=== PATIENT | male | born 1980 | race Asian ===

== ENCOUNTER 2018-07-07 06:57 | Emergency (ER) | payer SELFPAY ==
[~2018-07-07] VITALS: Wt 80.0 kg
[2018-07-07] MEDS ORDERED: IODIXANOL LOCM 100 ML BTL ONE (07:29)
[2018-07-07] MEDS ORDERED: SOD CHLORIDE 0.9% 100 ML ONE (07:29)
--- NOTE | 2018-07-07 07:53 | ERD ---
ER Documentation Chief Complaint Chief Complaint ams while at work no trauma or headache. confused on arrival. HPI During the patient's encounter translation services were utilized Language: Gita Source: In person 38-year-old male with unknown past medical history who presents to the emergency room with altered mental status and clumsiness. 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 Patrons called 911. The patient arrives and is alert to person and date of but otherwise confused. The patient is clumsiness. He states that he feels fine. He denies any drugs or alcohol. He denies any pain, no headache chest pain or shortness of breath. Remainder of HPI is somewhat limited. Last known well time is not available. The patient works the overnight shift. ROS All systems reviewed and are negative except as per history of present illness although somewhat limited Medications Home Meds No Active Prescriptions or Reported Meds Allergies Allergies: Coded Allergies: No Known Allergy (Unverified , 07/07/18) PMhx/Soc Hx Miscellaneous Medical Probl: Yes (jaundice ) Hx Alcohol Use: No Hx Substance Use: No Hx Tobacco Use: No Smoking Status: Never smoker FmHx Family History: No diabetes Physical Exam Vitals Vital Signs Date Temp Pulse Resp B/P (MAP) Pulse Ox O2 O2 Flow FiO2 Time Delivery Rate 07/07/18 98.9 93 18 134/90 100 Nasal 2.0 13:23 (105) Cannula 07/07/18 88 16 122/88 100 Nasal 2.0 11:17 (99) Cannula 07/07/18 85 17 129/90 99 Room Air 08:23 (103) 07/07/18 95 20 142/89 96 Room Air 07:27 (106) 07/07/18 97.9 102 18 148/78 98 07:05 (101) Physical Exam General: Appears older than stated age, somewhat confused Head: Normocephalic, atraumatic. Eyes: Pupils equally reactive, EOM intact ENT: Moist mucous membranes Neck: Supple, no lymphadenopathy Respiratory: Lungs clear bilaterally, no distress Cardiovascular: RRR, no murmurs, rubs, or gallops Abdominal: Soft, non-tender, non-distended, no peritoneal signs : Deferred MSK: No edema, no unilateral swelling, 5/5 strength Neurologic: Alert and oriented to person and date of otherwise confused, moving all extremities, normal speech, no focal weakness, no cerebellar signs however some clumsiness when transferring taper from hand to hand bilaterally. No pronator drift. Skin: No rash Psych: Normal mood Result Diagram: 07/07/18 0709 07/07/18 1151 Results 24 hrs Laboratory Tests Test 07/07/18 06:18 07/07/18 07:07 07/07/18 07:09 07/07/18 11:51 Urine Color YELLOW Urine Clarity CLEAR Urine pH 7.0 Urine Specific 1.012 [place] Urine Ketones NEGATIVE mg/dL Urine Nitrite NEGATIVE mg/dL Urine Bilirubin NEGATIVE mg/dL Urine Urobilinogen NEGATIVE mg/dL Urine Leukocyte NEGATIVE Art/ul Esterase Urine Microscopic 1 /HPF RBC Urine Microscopic 1 /HPF WBC Urine Hemoglobin 1+ mg/dL Urine Glucose NEGATIVE mg/dL Urine Total NEGATIVE mg/dl Protein Urine Opiates Negative Screen Urine Barbiturates Negative Urine Amphetamines Negative Screen Urine Negative Benzodiazepines Screen Urine Cocaine Negative Screen Urine Cannabinoids Negative Ammonia 40 umol/l White Blood Count 4.6 10^3/ul Red Blood Count 3.92 10^6/ul Hemoglobin 10.5 g/dl Hematocrit 32.6 % Mean Corpuscular 83.2 fl Volume Mean Corpuscular 26.8 pg Hemoglobin Mean Corpuscular 32.2 g/dl Hemoglobin Concent Red Cell 19.7 % Distribution Width Platelet Count 67 10^3/UL Mean Platelet 10.3 fl Volume Immature 0.400 % Granulocytes % Neutrophils % 48.6 % Lymphocytes % 32.4 % Monocytes % 12.3 % Eosinophils % 5.0 % Basophils % 1.3 % Nucleated Red 0.0 /100WBC Blood Cells % Immature 0.020 10^3/ul Granulocytes # Neutrophils # 2.3 10^3/ul Lymphocytes # 1.5 10^3/ul Monocytes # 0.6 10^3/ul Eosinophils # 0.2 10^3/ul Basophils # 0.1 10^3/ul Nucleated Red 0.0 10^3/ul Blood Cells # Platelet Estimate DECREASED Prothrombin Time 17.7 Sec Prothrombin Time 1.4 Ratio INR International 1.45 Normalized Ratio Activated 37.[address] Time Sodium Level 144 mmol/L 146 mmol/L Potassium Level 3.4 mmol/L 3.8 mmol/L Chloride Level 108 mmol/L 113 mmol/L Carbon Dioxide 27 mmol/L 26 mmol/L Level Anion Gap 9 7 Blood Urea 4 mg/dl 3 mg/dl Nitrogen Creatinine 0.85 mg/dl 0.76 mg/dl Est Glomerular > 60 mL/min > 60 mL/min Filtrat Rate mL/min Glucose Level 159 mg/dl 97 mg/dl Hemoglobin A1c 5.2 % Calcium Level 8.7 mg/dl 8.0 mg/dl Total Bilirubin 1.7 mg/dl Direct Bilirubin 0.00 mg/dl Indirect Bilirubin 1.7 mg/dl Aspartate Amino 93 IU/L Transf (AST/SGOT) Alanine 52 IU/L Aminotransferase ( ALT/SGPT) Alkaline 128 IU/L Phosphatase Creatine Kinase 1342 IU/L 1154 IU/L Creatine Kinase 0.4 Index Creatinine Kinase 5.58 ng/ml MB (Mass) Troponin I 0.015 ng/ml Total Protein 7.8 g/dl Albumin 3.7 g/dl Globulin 4.10 g/dl Albumin/Globulin 0.90 Ratio Triglycerides 77 mg/dl Level Cholesterol Level 149 mg/dl LDL Cholesterol, 64 mg/dl Calculated HDL Cholesterol 70 mg/dl Cholesterol/HDL 2.1 RATIO Ratio Ethyl Alcohol 403.0 mg/dl 337.0 mg/dl Level Current Medications Medications Dose Sig/Marquise Start Time Status Last (Trade) Ordered Route PRN Stop Time Admin Dose Reason Admin IV Flush 10 ml STK-MED 07/07/18 DC 07/07/18 (NS 10 ml) ONCE .ROUTE 07:07/07/18 07:30 07:30 Sodium 100 ml @ ud STK-MED 07/07/18 DC 07/07/18 Chloride ONCE .ROUTE 07:07/07/18 07:30 07:30 Iodixanol 100 ml STK-MED 07/07/18 DC 07/07/18 (Visipaque ONCE .ROUTE 07:07/07/18 07:30 Locm) 07:30 Sodium 1,000 ml @ Q1H STAT 07/07/18 DC 07/07/18 Chloride 1,000 mls/hr IV 08:17 07/07/18 08:17 09:16 Procedures/MDM EKG, MONITORS, & DIAGNOSTIC IMAGING: EKG: I reviewed and interpreted a 12-lead EKG. Rhythm: Normal sinus rhythm Ectopy: None Arrhythmia: None Intervals: No abnormalities ST segments: No elevations or depressions T waves: No contiguous inversions Interpretation: No acute cardiac ischemia Chest x-ray: I reviewed and interpreted a 1 view of the chest Mediastinum: No enlargement Cardiac silhouette: No cardiomegaly Airspace: Clear lung walls bilaterally without evidence of pneumothorax Bones: No evidence of fracture Interpretation: No acute cardiopulmonary process CT Brain: No acute process per radiologist read and report CTA Head and Neck: IMPRESSION: 1. 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 Arterial supply is via the left posterior cerebral artery. There is venous drainage into the left internal cerebral vein and a superficial cortical thinning of the left parietal lobe. Further evaluation with MRI MRA examination of the brain is advised. 2. 0-50 % stenosis of the bilateral extracranial internal carotid arteries by NASCET criteria. 3. Bilateral antegrade flow in the vertebral arteries. 4. 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 "No evidence for hemodynamically significant stenosis - validated velocity measurements with angiographic measurements, velocity criteria are extrapolated from diameter data as defined by the Society of Radiologists in Ultrasound Consensus Conference Radiology 2003; 229;340-346. This study does indirectly reference the measurement of the distal ICA diameter as the denominator for stenosis measurement." Call report: Results were called to Devon Hoffman at 07/07/2018 8:01:07 AM RPTAT: HRSR LAB INTERPRETATION: * Pancytopenia noted. * Mild ammonia elevation of 40, unknown baseline, creatinine kinase is elevated at 1342 downtrending 1154 * Alcohol level 403 MEDICAL DECISION MAKING: The patient presents with altered mental status and clumsiness. Differential is quite broad including toxicologic process and intoxication, ischemic stroke or cerebellar process. Metabolic process. The patient appears older than stated age. He reports no past medical history, consider possible hepatic dysfunction. Given the very broad differential the patient requires a broad workup. Patient likely has neurologic change in the past 24 hours therefore a code stroke was initiated. ER COURSE: Stroke assessment and timing: Last known well time: Unknown, assumed within past 24 hours Arrival to ED: 0655 Stroke code activation: [address] scan: [address]: 0 723 Initial neurology discussion: 0 722 NIHSS: 1-2 TPA decision-making: Patient is not a TPA candidate given unknown last known well time Interventional decision-making: Patient is unlikely an interventional candidate but CTA is pending. Stroke neurologist on-call: Dr. Pozo Critical Care Note: Total time: 45 minutes Indication/Organ System Threat: Acute neurologic deficit and stroke code activation that requires emergent evaluation and assessment to prevent neurologic compromising collapse. I spent the above amount of critical care time with the patient, not including billable procedures. This included chart review, consultations, repeat bedside evaluations, and titration of appropriate medications to prevent cardiopulmonary or respiratory collapse. UPDATE: * The patient's alcohol is elevated. In the end I do believe the patient's presentation is consistent with alcohol intoxication. * I believe given his constellation of symptoms and presentation the patient has an alcohol abuse issue. His family arrived and he was agreeable to talk with his family. I expressed to his and his other family member that he has an alcohol problem and his presentation is consistent with significant alcohol intoxication. The patient is adamant that he only had 2 beers prior to going to work and I explained that with his alcohol level that is not consistent and likely inaccurate. The patient is steadfast in his denial. Repeat alcohol level was sent and still elevated. * The patient is quite functional at an alcohol level in the 300s again suggesting chronicity of his issue. The patient's pancytopenia and ammonia level additionally support this diagnosis. Ammonia level is 40, no clear baseline, clinically he is more consistent with a contact location rather than hepatic encephalopathy. I do not believe he requires admission. * The patient is ambulatory and conversive in the emergency room setting, his family is sober and can take him home and watch him. * Creatinine kinase was repeated after IV fluids and is downtrending * CTA showed evidence of AV malformation. The patient has no headache and no evidence of hemorrhage. I discussed the case with the neurosurgeon on-call, Dr. Schofield who recommends outpatient follow-up on a nonemergent basis. The family was informed of these findings and need for follow-up and CT imaging was printed off further follow-up benefit. * visitor services specialist was consulted and evaluated the patient and provide him with resources. * At this point while the patient is still slightly intoxicated he is ambulatory and has sober family to watch him and take him home. I believe he is safe for discharge. No evidence of withdrawal. DISPOSITION PLAN: The patient does not have an identifiable emergent medical condition that warrants inpatient hospitalization at this time. The patient is deemed safe for discharge with outpatient follow-up. We discussed follow up with the patient's primary care doctor within 24 to 48 hours as needed. We also discussed return to the emergency room for worsening symptoms or worsening condition. Outpatient referral: Primary care, neurosurgeon Departure Diagnosis: Primary Impression: Acute alcohol intoxication Complication of substance-induced condition: uncomplicated Qualified Codes: F10.920 - Alcohol use, unspecified with intoxication, uncomplicated Additional Impressions: Pancytopenia Dehydration, mild Alcohol abuse Condition: Stable DEVON DE LA CRUZ MD Jul 07, 2018 07:53
[2018-07-07] MEDS ORDERED: SOD CHLORIDE 0.9% 1,000 ML IV STA (08:17)
--- NOTE | 2018-07-07 08:33 | STROKE ---
Date/Time of Note Date/Time of Note DATE: 07/07/18 TIME: 08:27 Patient Information General Patient location: emergency Arrival Date Age 38 Gender male Weight 80 kg Vital Signs Vital Signs Vital Signs Date Temp Pulse Resp B/P (MAP) Pulse Ox O2 O2 Flow FiO2 Time Delivery Rate 07/07/18 85 17 129/90 99 Room Air 08:23 (103) 07/07/18 97.9 07:05 Labs Coagulation Labs: Coagulation Test 07/07/18 07:09 Activated Partial Thromboplast Time 37.9 Sec (23.0-35.0) History & Physical Patient History Notes Pt Hx Reviewed History of Present Illness 38yo M presents with AMS. Is a [employer] attendant, suddenly dropping money noted by patrons. Unknown time of onset. No blood thinners. Patient reports he felt normal at 6:50 He was working and someone called 911 and picked him up. Patient reports that he was having an argument with someone about selling a ticket and called 911. He reports that he was just very busy because he was the only person working and it was a busy morning. Patient denies any confusion and reports paramedics just brought him. Patient reports he recalls all events of the morning. Review of Systems Constitutional: no symptoms reported EENTM: no symptoms reported Respiratory: no symptoms reported Cardiovascular: no symptoms reported Gastrointestinal: no symptoms reported Genitourinary: no symptoms reported Musculoskeletal: no symptoms reported Skin: no symptoms reported Psychiatric/Neurological: no symptoms reported All Other Systems: Reviewed and Negative NIH Stroke Scale NIH Stroke Scale [id number] l4d LOC Questions: Qqtwr7u C Commands: Tmryo6u t Gaze: Nvbgx5n Wkobn9p alsy: Kanlj8b rm - Left: Hodnp6b ight: Cbmst7h eft: Ykjeo5x ight: Ankkh2k Bectl3h Kbxpn0t Wzgxf5h jennifer: Jczyy5l Kyzjy1z 4Bd Total Score: Fivuw2d Date/Time Recorded DATE: 07/07/18 TIME: 08:27 Submitted By Jairo Pozo t-PA Imaging Review Imaging Reviewed: Yes Date/Time Imaging Reviewed DATE: 07/07/18 TIME: 08:27 Imaging Findings Per report, hyperdensity seen is related to AVM. No other acute changes. t-PA Administration Recommendation: No Weight 80 kg Recommedation submitted by Jairo Pozo Reason t-PA not Recommended 08:15 t-PA Not Recommended Date/Time Patient has no significant deficits Recommendations Impression Diagnosis AMS Recommendation 38yo M presents with acute onset confusion. Neurological exam is notable only for patient saying he is 35 although he is 38 years old, but otherwise unremarkable. Patient also speaks Gita as his primarly language and has language barrier that may be affecting perception. I suspect patient was not actually confused but had language difficulty and this caused a patron to become concerned. I discussed this with Dr. Willis and he plans to discuss with patient further. If there was not true confusion, and this was a misunderstanding related to language barrier, then no further workup at this time. JAIRO POZO Jul 07, 2018 08:33
[2018-07-07 13:23] VITALS: BP 134/90; PULSE 93; RESP 18
== END 2018-07-07 14:21 | disposition home or self-care (01) ==
LOC: E/R 06:57
DX: F10.920 Alcohol use, unspecified with intoxication, uncomplicated (principal); D61.818 Other pancytopenia; E86.0 Dehydration; R40.2142 Coma scale, eyes open, spontaneous, at arrival to emergency department; R40.2242 Coma scale, best verbal response, confused conversation, at arrival to emergency department; R40.2362 Coma scale, best motor response, obeys commands, at arrival to emergency department
CPT/HCPCS: 36415; 70450; 70496; 70498; 71045; 80048; 80053; 80061; 80307; 81001; 82140; 82550; 82553; 83036; 84484; 85025; 85610; 85730; 93005; 99291; J7030; Q9967